=== PATIENT | male | born 1985 | race Caucasian/White ===

== ENCOUNTER 2018-09-25 00:45 | Emergency (ER) | payer OTHER, SELFPAY ==
[2018-09-25 00:50] VITALS: BP 159/95; PULSE 109; RESP 19; TEMP 37.1; O2SAT 99; BMI 28.2
--- NOTE | 2018-09-25 00:54 | ED_ITS ---
HPI - Wound/Laceration General Chief Complaint: Wound/Laceration Stated Complaint: cut middle left finger Time Seen by Provider: 09/25/18 00:54 Source: patient Mode of arrival: ambulatory Limitations: no limitations History of Present Illness HPI narrative: 33-year-old male who cut his left middle finger on a cheese Grater. Unsure when his last tetanus shot was. Was bleeding at home. Came into the ER for evaluation to see if he needed stitches Review of Systems Musculoskeletal Denies myalgias, Denies arthralgias and Denies tingling Integumentary/Breasts Comments: Cut to the end of his left middle finger Neurologic Denies tingling Hematologic/Lymphatic Denies easy bleeding and Denies easy bruising [facility] Medical History Patient denies medical problems (Acute) Social History Smoking Status: Former smoker Social History Smoking Status: Former smoker Exam Initial Vital Signs Initial Vital Signs: Vital Signs Temperature 98.8 F 09/25/18 00:50 Pulse Rate 109 H 09/25/18 00:50 Respiratory Rate 19 09/25/18 00:50 Blood Pressure 159/95 H 09/25/18 00:50 Pulse Oximetry 99 09/25/18 00:50 Resp Effort & Inspection: normal respiratory effort Cardio Pulses: radial pulses present bilaterally Skin Other: Patient with a skin avulsion with a flap on the very distal aspect of the middle finger. Neuro Sensory Exam: no sensory deficits noted Extrem General: normal to inspection and capillary refill normal Psych Appearance: grossly normal and well kempt Procedures Laceration Repair Laceration 1: Site: hand Side (If applicable): left Size (cm): 1 Description: flap Depth: simple, single layer Pre-repair: wound explored and irrigated extensively Skin layer closed with: dermabond Course Orders Ordered: Discontinued Medications Diphtheria/Tetanus/Acell Pertussis (Adacel) 0.5 ml IM .ONCE ONE Stop: 09/25/18 00:55 Last Admin: 09/25/18 00:56 Dose: 0.5 ml Vital Signs - 8 hr 09/25/18 00:50 Temperature 98.8 F Pulse Rate 109 H Respiratory Rate 19 Blood Pressure 159/95 H Pulse Oximetry 99 MDM - Wound/Laceration MDM Narrative Medical decision making narrative: Patient's tetanus was updated. The wound was closed with Dermabond and Steri-Strips. He was given return precautions follow- up instructions. He was informed that the flap may not survive due to the disruption of the blood supply. He expressed understanding and agreement with plan. Discharge Plan Departure Patient Disposition: Home Clinical Impression: Laceration Discharge Date/Time: 09/25/18 01:20 Interventions: ED Discharge Assessment Last Done: 09/25/18 01:19 Instructions: DI for Laceration Repair Steri-Strips, DI for Laceration Repair With Dermabond Activity Restrictions/Additional Instructions: Your tetanus shot was updated today 09/25/18. I do recommend he follow up with your medical department on Thursday for any work-related restrictions. I recommend you do not soak your hand anything until the cut has healed. Return to the emergency department for any new or worsening symptoms
[2018-09-25] MEDS: TET,DIPH,PERTUSS(ACELL),VAC/PF 0.5 ML SYRINGE IM (00:56)
== END 2018-09-25 01:20 | disposition home or self-care (01) ==
PROVIDERS: Emergency Provider Emergency Medicine
DX: S61.213A Laceration without foreign body of left middle finger without damage to nail, initial encounter (principal); W26.8XXA Contact with other sharp object(s), not elsewhere classified, initial encounter; Z23 Encounter for immunization
CPT/HCPCS: 90471; 99283; 90715

== ENCOUNTER 2018-11-03 01:40 | Emergency (ER) | payer OTHER, SELFPAY ==
[2018-11-03 01:40] VITALS: BP 157/97; PULSE 96; RESP 22; TEMP 36.6; O2SAT 100
--- NOTE | 2018-11-03 01:47 | DI.RAD.S_ITS ---
PROCEDURE: XR CHEST 1V INDICATIONS: chest pain TECHNIQUE: One view of the chest was acquired. COMPARISON: None. FINDINGS: Surgical changes and devices: None. Lungs and pleura: Lungs are clear. No pleural effusions or pneumothorax. Mediastinum: Mediastinal contours appear normal. Heart size is normal. Bones and chest wall: No suspicious bony lesions. Overlying soft tissues appear unremarkable. IMPRESSION: No evidence acute pulmonary process. Dictated by: Chauncey Rosenberg M.D. on 11/03/2018 at 9:33 Approved by: Chauncey Rosenberg M.D. on 11/03/2018 at 9:34
[2018-11-03 02:04] VITALS: BP 125/91; PULSE 95; RESP 19; O2SAT 100
[2018-11-03] MEDS: SODIUM CHLORIDE 0.9% 1,000 ML 150 ML IV (02:17)
[2018-11-03 02:22] LABS: Add Manual Diff / Slide Review NO; Basophils Absolute Auto 100 /uL (0-100); Basophils Percent Auto 0.9 % (0-2); Eosinophils Absolute Auto 300 /uL (0-450); Eosinophils Percent Auto 4.2 % (2-4); Hematocrit 41.3 % (41-53); Hemoglobin 14.4 g/dL (13.5-17.5); Lymphocytes Absolute Auto 1900 /uL (1100-4500); Lymphocytes Percent Auto 22.3 % (25-40); Mean Corpuscular HGB Conc 34.9 % (30-36); Mean Corpuscular Hemoglobin 31.4 PG (26-34); Mean Corpuscular Volume 89.8 fL (80-100); Monocytes Absolute Auto 900 /uL (0-900); Monocytes Percent Auto 10.6 % (3-14); Neutrophils Absolute Auto 5200 /uL (1500-7000); Platelet Count 215 X10^3/uL (150-400); Red Blood Cell Count 4.59 X10^6/uL (4.5-5.9); Red Cell Distribution Width 13.7 % (11.6-14.8); White Blood Cell Count 8.3 X10^3/uL (4.5-11.0)
[2018-11-03 02:34] LABS: Blood Urea Nitrogen 17 mg/dL (9-20); Calcium 9.2 mg/dL (8.4-10.2); Carbon Dioxide 27 mmol/L (22-32); Chloride 100 mmol/L (98-107); Creatine Kinase 243 U/L (55-170); Estimated Glomerular Filt Rate > 60.0 mL/min (>60); Glucose 102 mg/dL (70-100); HEMOLYSIS < 15 (0-50); Magnesium 2.1 mg/dL (1.6-2.3); Potassium 3.5 mmol/L (3.4-5.1); Sodium 138 mmol/L (137-145)
--- NOTE | 2018-11-03 02:36 | ED.CHESTPAIN ---
HPI - Chest Pain General Chief Complaint: Chest Pain Stated Complaint: DIZZY LIGHTHEADED CHEST FELT WEIRD Time Seen by Provider: 11/03/18 01:41 Source: patient Mode of arrival: ambulatory Limitations: no limitations History of Present Illness HPI narrative: 33-year-old male nonsmoker with benign medical history presents with a chief complaint of 24 hours of palpitations, lightheadedness and chest pressure. He states this has happened multiple times in the past and he has been evaluated without any significant outcome. He denies any change in diet. He has very little caffeine and seldom has alcohol. He does chew tobacco but denies any change in the amount, frequency or brand. Patient flew from [facility] 4 months ago, denies injury, surgery, history of cancer or blood clot. He denies fever chills nor nausea, vomiting or diarrhea. MD complaint: chest pain Onset (ago): hour(s) Duration: constant Pain location: substernal Severity: mild Quality: tightness Pain radiation: none Treatments prior to arrival chest pain: none Related Data Allergies Allergy/AdvReac Type Severity Reaction Status Date / Time cat dander Allergy Verified 11/03/18 02:01 Review of Systems Constitutional Denies chills, Denies fever(s), Denies lethargy and Denies weakness Eyes Denies change in vision, Denies eye discharge, Denies irritation and Denies loss of vision ENT Ears, Nose, Mouth, and Throat: Denies change in voice, Denies neck pain and Denies sore throat Cardiovascular Reports chest pain, Reports irregular heart rhythm, Reports lightheadedness, Reports palpitations, Denies dyspnea, Denies dyspnea on exertion and Denies orthopnea Respiratory Denies cough, Denies dyspnea, Denies dyspnea on exertion and Denies wheezing Gastrointestinal Gastrointestinal: Denies abdominal pain, Denies change in bowel habits, Denies diarrhea, Denies nausea and Denies vomiting Genitourinary Denies hematuria, Denies flank pain, Denies urinary incontinence and Denies urinary urgency Musculoskeletal Denies neck pain Integumentary/Breasts Denies pruritus, Denies erythema, Denies rash and Denies wounds Neurologic Denies confusion, Denies loss of vision and Denies weakness Psychiatric Denies anxiety, Denies confusion, Denies depression, Denies homicidal ideation and Denies suicidal ideation Endocrine Reports palpitations Hematologic/Lymphatic Denies easy bruising Allergic/Immunologic Denies wheezing [facility] Medical History Patient denies medical problems (Acute) Social History Smoking Status: Former smoker Social History Smoking Status: Former smoker Exam Narrative Exam Narrative: GENERAL: 33-year-old male appears stated age, visibly anxious HEAD: Atraumatic. Normocephalic. No temporal or scalp tenderness. EYES: Pupils equal round and reactive. Extraocular motions intact. No scleral icterus. No injection or drainage. ENT: Nose without bleeding, purulent drainage or septal hematoma. Throat without erythema, tonsillar hypertrophy or exudate. Uvula midline. Airway patent. NECK: Trachea midline. No JVD or lymphadenopathy. Supple, nontender, no meningeal signs. CARDIOVASCULAR: Regular rate and rhythm without murmurs, gallops, or rubs. RESPIRATORY: Clear to auscultation. Breath sounds equal bilaterally. No wheezes, rales, or rhonchi. GASTROINTESTINAL: Abdomen soft, non-tender, nondistended. No hepato-splenomegaly, or palpable masses. No guarding. EXTREMITIES: No clubbing, cyanosis, or edema. No joint tenderness, effusion, or edema noted. BACK: Nontender without deformity or crepitance. No flank tenderness. NEURO: AOx3. SKIN: No rash or erythema. Initial Vital Signs Initial Vital Signs: Vital Signs Temperature 97.9 F 11/03/18 01:40 Pulse Rate 96 H 11/03/18 01:40 Respiratory Rate 22 11/03/18 01:40 Blood Pressure 157/97 H 11/03/18 01:40 Pulse Oximetry 100 11/03/18 01:40 Scores HEART Score Heart Score history: Slightly Suspicious Heart Score EKG: Normal Heart Score Age: < 45 years old Heart Score risk factors: No known risk factors Heart Score troponin: < or = to normal limit Heart Score Total: 0 Course Orders Ordered: ED Orders 11/03/18 01:47 XR chest 1V Stat EKG-12 Lead Stat 11/03/18 02:10 Basic Metabolic Panel Stat Complete Blood Count AUTO DIFF Stat D Dimer Stat Magnesium Stat Thyroid Stimulating Hormone Stat Troponin & CK Cardiac Panel Stat Discontinued Medications Sodium Chloride (Normal Saline 0.9%) 1,000 mls @ 150 mls/hr IV CONT DELONTE Last Admin: 11/03/18 02:17 Dose: 150 mls/hr Vital Signs - 8 hr 11/03/18 01:40 11/03/18 02:04 11/03/18 02:46 Temperature 97.9 F Pulse Rate 96 H 95 H 100 H Respiratory Rate 22 19 16 Blood Pressure 157/97 H Blood Pressure [Left Arm] 125/91 H 134/91 H Pulse Oximetry 100 100 98 11/03/18 03:03 Temperature Pulse Rate 95 H Respiratory Rate 16 Blood Pressure 134/91 H Blood Pressure [Left Arm] Pulse Oximetry 98 MDM - Chest Pain Lab Data Result diagrams: 11/03/18 02:10 11/03/18 02:10 Lab Results 11/03/18 11/03/18 11/03/18 Range/Units 02:10 02:10 02:10 WBC 8.3 (4.5-11.0) X10^3/uL RBC 4.59 (4.5-5.9) X10^6/uL Hgb 14.4 (13.5-17.5) g/dL Hct 41.3 (41-53) % MCV 89.8 (80-100) fL MCH 31.4 (26-34) PG MCHC 34.9 (30-36) % RDW 13.7 (11.6-14.8) % Plt Count 215 (150-400) X10^3/uL Neut % (Auto) 62.0 (50-75) % Lymph % (Auto) 22.3 L (25-40) % [place] % (Auto) 10.6 (3-14) % Eos % (Auto) 4.2 H (2-4) % Baso % (Auto) 0.9 (0-2) % Neut # (Auto) 5200 (9972-5832) /uL Lymph # (Auto) 1900 (6665-0341) /uL [place] # (Auto) 900 (0-900) /uL Eos # (Auto) 300 (0-450) /uL Baso # (Auto) 100 (0-100) /uL D-Dimer < 200 (<230) ng/mL Sodium 138 (137-145) mmol/L Potassium 3.5 (3.4-5.1) mmol/L Chloride 100 (98-107) mmol/L Carbon Dioxide 27 (22-32) mmol/L BUN 17 (9-20) mg/dL Creatinine 1.00 (0.66-1.25) mg/dL Estimated GFR > 60.0 (>60) mL/min BUN/Creatinine Ratio 17.0 (6-22) Glucose 102 H (70-100) mg/dL Calcium 9.2 (8.4-10.2) mg/dL Magnesium 2.1 (1.6-2.3) mg/dL Total Creatine Kinase 243 H (55-170) U/L CK-MB (CK-2) 1.15 (<2.37) ng/mL CK-MB (CK-2) Rel Index 0.5 L (1.5-5.0) % Troponin I < 0.012 (0.01-0.034) ng/mL TSH (0.47-4.68) uIU/mL 11/03/18 Range/Units 02:10 WBC (4.5-11.0) X10^3/uL RBC (4.5-5.9) X10^6/uL Hgb (13.5-17.5) g/dL Hct (41-53) % MCV (80-100) fL MCH (26-34) PG MCHC (30-36) % RDW (11.6-14.8) % Plt Count (150-400) X10^3/uL Neut % (Auto) (50-75) % Lymph % (Auto) (25-40) % [place] % (Auto) (3-14) % Eos % (Auto) (2-4) % Baso % (Auto) (0-2) % Neut # (Auto) (4788-0268) /uL Lymph # (Auto) (7783-3036) /uL [place] # (Auto) (0-900) /uL Eos # (Auto) (0-450) /uL Baso # (Auto) (0-100) /uL D-Dimer (<230) ng/mL Sodium (137-145) mmol/L Potassium (3.4-5.1) mmol/L Chloride (98-107) mmol/L Carbon Dioxide (22-32) mmol/L BUN (9-20) mg/dL Creatinine (0.66-1.25) mg/dL Estimated GFR (>60) mL/min BUN/Creatinine Ratio (6-22) Glucose (70-100) mg/dL Calcium (8.4-10.2) mg/dL Magnesium (1.6-2.3) mg/dL Total Creatine Kinase (55-170) U/L CK-MB (CK-2) (<2.37) ng/mL CK-MB (CK-2) Rel Index (1.5-5.0) % Troponin I (0.01-0.034) ng/mL TSH 2.53 (0.47-4.68) uIU/mL ECG Data Attestation: I personally reviewed and interpreted this ECG as follows: Prior ECG tracings: not available for review Interpretation: Sinus arrhythmia, rate 96, no ectopy or ischemic change just T-wave inversion or ST segmental elevation or depression Discharge Plan Departure Patient Disposition: Home Clinical Impression: Heart palpitations, Atypical chest pain Discharge Date/Time: 11/03/18 03:04 Interventions: ED Discharge Assessment Last Done: 11/03/18 03:03 Instructions: DI for Palpitations Activity Restrictions/Additional Instructions: *You have been diagnosed with [palpitations and atypical chest pain] *What to do: * continue to take medications as directed *Follow up with your primary care provider in 2-3 days, call for an appointment. Let them know you were seen in the Emergency Department and that we ask that you be seen in follow up *Return to ER if you should have any new, worsening or concerning symptoms * limit your caffeine, nicotine and alcohol intake Referrals: [facility] [Outside]
--- NOTE | 2018-11-03 02:41 | ED_ITS ---
HPI - Chest Pain General Chief Complaint: Chest Pain Stated Complaint: DIZZY LIGHTHEADED CHEST FELT WEIRD Time Seen by Provider: 11/03/18 01:41 Source: patient Mode of arrival: ambulatory Limitations: no limitations History of Present Illness HPI narrative: 33-year-old male nonsmoker with benign medical history presents with a chief complaint of 24 hours of palpitations, lightheadedness and chest pressure. He states this has happened multiple times in the past and he has been evaluated without any significant outcome. He denies any change in diet. He has very little caffeine and seldom has alcohol. He does chew tobacco but denies any change in the amount, frequency or brand. Patient flew from [facility] 4 months ago, denies injury, surgery, history of cancer or blood clot. He denies fever chills nor nausea, vomiting or diarrhea. MD complaint: chest pain Onset (ago): hour(s) Duration: constant Pain location: substernal Severity: mild Quality: tightness Pain radiation: none Treatments prior to arrival chest pain: none Related Data Allergies Allergy/AdvReac Type Severity Reaction Status Date / Time cat dander Allergy Verified 11/03/18 02:01 Review of Systems Constitutional Denies chills, Denies fever(s), Denies lethargy and Denies weakness Eyes Denies change in vision, Denies eye discharge, Denies irritation and Denies loss of vision ENT Ears, Nose, Mouth, and Throat: Denies change in voice, Denies neck pain and Denies sore throat Cardiovascular Reports chest pain, Reports irregular heart rhythm, Reports lightheadedness, Reports palpitations, Denies dyspnea, Denies dyspnea on exertion and Denies orthopnea Respiratory Denies cough, Denies dyspnea, Denies dyspnea on exertion and Denies wheezing Gastrointestinal Gastrointestinal: Denies abdominal pain, Denies change in bowel habits, Denies diarrhea, Denies nausea and Denies vomiting Genitourinary Denies hematuria, Denies flank pain, Denies urinary incontinence and Denies urinary urgency Musculoskeletal Denies neck pain Integumentary/Breasts Denies pruritus, Denies erythema, Denies rash and Denies wounds Neurologic Denies confusion, Denies loss of vision and Denies weakness Psychiatric Denies anxiety, Denies confusion, Denies depression, Denies homicidal ideation and Denies suicidal ideation Endocrine Reports palpitations Hematologic/Lymphatic Denies easy bruising Allergic/Immunologic Denies wheezing [facility] Medical History Patient denies medical problems (Acute) Social History Smoking Status: Former smoker Social History Smoking Status: Former smoker Exam Narrative Exam Narrative: GENERAL: 33-year-old male appears stated age, visibly anxious HEAD: Atraumatic. Normocephalic. No temporal or scalp tenderness. EYES: Pupils equal round and reactive. Extraocular motions intact. No scleral icterus. No injection or drainage. ENT: Nose without bleeding, purulent drainage or septal hematoma. Throat without erythema, tonsillar hypertrophy or exudate. Uvula midline. Airway patent. NECK: Trachea midline. No JVD or lymphadenopathy. Supple, nontender, no meninge al signs. CARDIOVASCULAR: Regular rate and rhythm without murmurs, gallops, or rubs. RESPIRATORY: Clear to auscultation. Breath sounds equal bilaterally. No wheezes, rales, or rhonchi. GASTROINTESTINAL: Abdomen soft, non-tender, nondistended. No hepato- splenomegaly, or palpable masses. No guarding. EXTREMITIES: No clubbing, cyanosis, or edema. No joint tenderness, effusion, or edema noted. BACK: Nontender without deformity or crepitance. No flank tenderness. NEURO: AOx3. SKIN: No rash or erythema. Initial Vital Signs Initial Vital Signs: Vital Signs Temperature 97.9 F 11/03/18 01:40 Pulse Rate 96 H 11/03/18 01:40 Respiratory Rate 22 11/03/18 01:40 Blood Pressure 157/97 H 11/03/18 01:40 Pulse Oximetry 100 11/03/18 01:40 Scores HEART Score Heart Score history: Slightly Suspicious Heart Score EKG: Normal Heart Score Age: < 45 years old Heart Score risk factors: No known risk factors Heart Score troponin: < or = to normal limit Heart Score Total: 0 Course Orders Ordered: ED Orders 11/03/18 01:47 XR chest 1V Stat EKG-12 Lead Stat 11/03/18 02:10 Basic Metabolic Panel Stat Complete Blood Count AUTO DIFF Stat D Dimer Stat Magnesium Stat Thyroid Stimulating Hormone Stat Troponin & CK Cardiac Panel Stat Discontinued Medications Sodium Chloride (Normal Saline 0.9%) 1,000 mls @ 150 mls/hr IV CONT DELONTE Last Admin: 11/03/18 02:17 Dose: 150 mls/hr Vital Signs - 8 hr 11/03/18 01:40 11/03/18 02:04 11/03/18 02:46 Temperature 97.9 F Pulse Rate 96 H 95 H 100 H Respiratory Rate 22 19 16 Blood Pressure 157/97 H Blood Pressure [Left Arm] 125/91 H 134/91 H Pulse Oximetry 100 100 98 11/03/18 03:03 Temperature Pulse Rate 95 H Respiratory Rate 16 Blood Pressure 134/91 H Blood Pressure [Left Arm] Pulse Oximetry 98 MDM - Chest Pain Lab Data Result diagrams: 11/03/18 02:10 11/03/18 02:10 Lab Results 11/03/18 11/03/18 11/03/18 Range/Units 02:10 02:10 02:10 WBC 8.3 (4.5-11.0) X10^3/uL RBC 4.59 (4.5-5.9) X10^6/uL Hgb 14.4 (13.5-17.5) g/dL Hct 41.3 (41-53) % MCV 89.8 (80-100) fL MCH 31.4 (26-34) PG MCHC 34.9 (30-36) % RDW 13.7 (11.6-14.8) % Plt Count 215 (150-400) X10^3/uL Neut % (Auto) 62.0 (50-75) % Lymph % (Auto) 22.3 L (25-40) % [place] % (Auto) 10.6 (3-14) % Eos % (Auto) 4.2 H (2-4) % Baso % (Auto) 0.9 (0-2) % Neut # (Auto) 5200 (7561-3133) /uL Lymph # (Auto) 1900 (1773-4841) /uL [place] # (Auto) 900 (0-900) /uL Eos # (Auto) 300 (0-450) /uL Baso # (Auto) 100 (0-100) /uL D-Dimer < 200 (<230) ng/mL Sodium 138 (137-145) mmol/L Potassium 3.5 (3.4-5.1) mmol/L Chloride 100 (98-107) mmol/L Carbon Dioxide 27 (22-32) mmol/L BUN 17 (9-20) mg/dL Creatinine 1.00 (0.66-1.25) mg/dL Estimated GFR > 60.0 (>60) mL/min BUN/Creatinine Ratio 17.0 (6-22) Glucose 102 H (70-100) mg/dL Calcium 9.2 (8.4-10.2) mg/dL Magnesium 2.1 (1.6-2.3) mg/dL Total Creatine Kinase 243 H (55-170) U/L CK-MB (CK-2) 1.15 (<2.37) ng/mL CK-MB (CK-2) Rel Index 0.5 L (1.5-5.0) % Troponin I < 0.012 (0.01-0.034) ng/mL TSH (0.47-4.68) uIU/mL 11/03/18 Range/Units 02:10 WBC (4.5-11.0) X10^3/uL RBC (4.5-5.9) X10^6/uL Hgb (13.5-17.5) g/dL Hct (41-53) % MCV (80-100) fL MCH (26-34) PG MCHC (30-36) % RDW (11.6-14.8) % Plt Count (150-400) X10^3/uL Neut % (Auto) (50-75) % Lymph % (Auto) (25-40) % [place] % (Auto) (3-14) % Eos % (Auto) (2-4) % Baso % (Auto) (0-2) % Neut # (Auto) (8909-3389) /uL Lymph # (Auto) (3897-5270) /uL [place] # (Auto) (0-900) /uL Eos # (Auto) (0-450) /uL Baso # (Auto) (0-100) /uL D-Dimer (<230) ng/mL Sodium (137-145) mmol/L Potassium (3.4-5.1) mmol/L Chloride (98-107) mmol/L Carbon Dioxide (22-32) mmol/L BUN (9-20) mg/dL Creatinine (0.66-1.25) mg/dL Estimated GFR (>60) mL/min BUN/Creatinine Ratio (6-22) Glucose (70-100) mg/dL Calcium (8.4-10.2) mg/dL Magnesium (1.6-2.3) mg/dL Total Creatine Kinase (55-170) U/L CK-MB (CK-2) (<2.37) ng/mL CK-MB (CK-2) Rel Index (1.5-5.0) % Troponin I (0.01-0.034) ng/mL TSH 2.53 (0.47-4.68) uIU/mL ECG Data Attestation: I personally reviewed and interpreted this ECG as follows: Prior ECG tracings: not available for review Interpretation: Sinus arrhythmia, rate 96, no ectopy or ischemic change just T- wave inversion or ST segmental elevation or depression Discharge Plan Departure Patient Disposition: Home Clinical Impression: Heart palpitations, Atypical chest pain Discharge Date/Time: 11/03/18 03:04 Interventions: ED Discharge Assessment Last Done: 11/03/18 03:03 Instructions: DI for Palpitations Activity Restrictions/Additional Instructions: *You have been diagnosed with [palpitations and atypical chest pain] *What to do: * continue to take medications as directed *Follow up with your primary care provider in 2-3 days, call for an appointment. Let them know you were seen in the Emergency Department and that we ask that you be seen in follow up *Return to ER if you should have any new, worsening or concerning symptoms * limit your caffeine, nicotine and alcohol intake Referrals: [facility] [Outside]
[2018-11-03 02:42] LABS: D Dimer < 200 ng/mL (<230)
[2018-11-03 02:46] VITALS: BP 134/91; PULSE 100; RESP 16; O2SAT 98
[2018-11-03 02:46] LABS: Troponin I < 0.012 ng/mL (0.01-0.034)
[2018-11-03 02:49] LABS: CKMB % Relative Index 0.5 % (1.5-5.0); Creatine Kinase MB 1.15 ng/mL (<2.37)
[2018-11-03 03:03] VITALS: BP 134/91; PULSE 95; RESP 16; O2SAT 98
[2018-11-03 03:05] LABS: Thyroid Stimulating Hormone 2.53 uIU/mL (0.47-4.68)
--- NOTE | 2018-11-13 19:10 | PC.NURSE ---
IV fluids d/c'd at time of d/c at 0304
== END 2018-11-03 03:04 | disposition home or self-care (01) ==
PROVIDERS: Emergency Provider Emergency Medicine
DX: R07.89 Other chest pain (principal); R00.2 Palpitations
CPT/HCPCS: 36591; 71045; 80048; 82550; 82553; 83735; 84443; 84484; 85025; 85379; 93005; 93010; 96360; 99282; 99285

== ENCOUNTER → 2019-08-12 15:57 | Outpatient (CLI) | payer OTHER, SELFPAY ==
[2019-08-13 04:19] LABS: COVID19 Sendout Not Detected (Not Detect)
== END ==
PROVIDERS: Visit Provider Family Medicine
DX: Z11.59 Encounter for screening for other viral diseases (principal)
CPT/HCPCS: 87635